=== PATIENT | female | born 1985 | race Two or more races ===

== ENCOUNTER 2021-03-10 16:07 | Emergency (ER) | payer MEDICAID, OTHER ==
[~2021-03-10] VITALS: Ht 165.1 cm; Wt 79.8 kg
[2021-03-10] MEDS ORDERED: ONDANSETRON HCL 4 MG/2 ML VIAL IM ONE (16:45)
[2021-03-10] MEDS ORDERED: HYDROmorphone HCL 2 MG/ML VL IM ONE (16:45)
[2021-03-10 17:58] LABS: Basophils # (auto) 0 10 ^3/uL (0-0.2); Basophils % (auto) 0.3 % (0.0-2.0); Eosinophils # (auto) 0 10 ^3/uL (0-0.8); Eosinophils % (auto) 0.2 % (0.0-7.0); Hemoglobin 14.2 g/dL (12.2-16.2); Lymphocytes # (auto) 3.6 10 ^3/uL (0.4-5.4); Lymphocytes % (auto) 20.2 % (10.0-50.0); Mean Corpuscular Hemoglobin 28.6 pg (28.0-32.0); Mean Corpuscular Volume 86.5 fL (80.0-100.0); Monocytes # (auto) 0.9 10 ^3/uL (0-1.3); Monocytes % (auto) 4.7 % (0.0-12.0); Neutrophils # (auto) 13.5 10 ^3/uL (1.6-8.6); Neutrophils % (auto) 74.6 % (37.0-80.0); Red Blood Cells 4.97 10^6/uL (4.0-5.20); Red Cell Distribution Width 14.6 % (11.8-14.3); White Blood Cell 18.1 10^3/uL (4.4-10.8)
[2021-03-10 18:14] LABS: Albumin 2.9 g/dL (3.4-5.0); Calcium 9.4 mg/dL (8.5-10.1); Potassium 3.8 mmol/L (3.5-5.1)
[2021-03-10 18:17] LABS: BUN/Creatinine Ratio 34.8
[2021-03-10 18:19] LABS: Bilirubin, Total 0.2 mg/dL (0.2-1.0); Total Protein 6.7 g/dL (6.4-8.2)
[2021-03-11 00:22] VITALS: BP 127/69
== END 2021-03-11 00:24 | disposition home or self-care (01) ==
LOC: ER 16:07
DX: G51.0 Bell's palsy (principal); R51.9 Headache, unspecified
CPT/HCPCS: 36415; 70450; 74176; 80053; 83690; 85025; 96372; 99284; J1170; J2405

== ENCOUNTER 2021-03-25 14:16 | Inpatient (IN) | payer MEDICAID ==
[~2021-03-25] VITALS: Ht 162.6 cm; Wt 84.6 kg
[2021-03-25 18:59] LABS: Basophils # (auto) 0 10 ^3/uL (0-0.2); Basophils % (auto) 0.3 % (0.0-2.0); Eosinophils # (auto) 0.1 10 ^3/uL (0-0.8); Hematocrit 42.2 % (36.0-46.0); Hemoglobin 14.1 g/dL (12.2-16.2); Lymphocytes # (auto) 3.3 10 ^3/uL (0.4-5.4); Lymphocytes % (auto) 35.8 % (10.0-50.0); Mean Corpuscular Hemoglobin 29.3 pg (28.0-32.0); Mean Corpuscular Hgb Conc. 33.5 g/dL (32.0-36.0); Mean Corpuscular Volume 87.4 fL (80.0-100.0); Monocytes # (auto) 0.4 10 ^3/uL (0-1.3); Monocytes % (auto) 4.6 % (0.0-12.0); Neutrophils # (auto) 5.4 10 ^3/uL (1.6-8.6); Neutrophils % (auto) 58.3 % (37.0-80.0); Red Blood Cells 4.82 10^6/uL (4.0-5.20); White Blood Cell 9.2 10^3/uL (4.4-10.8)
[2021-03-25 23:44] LABS: Anion Gap 10 (5-15); Calcium 8.9 mg/dL (8.5-10.1); Carbon Dioxide 19 mmol/L (21-32); Chloride 111 mmol/L (98-107); Glucose 90 mg/dL (74-106); Lipase 63 U/L (73-393); Potassium 4.3 mmol/L (3.5-5.1); Sodium 140 mmol/L (136-145)
[2021-03-25 23:51] LABS: Alanine Aminotransferase 34 U/L (13-56); Alkaline Phosphatase 71 U/L (45-117); Aspartate Aminotransferase 22 U/L (15-37); BUN/Creatinine Ratio 46.3; Bilirubin, Total 0.4 mg/dL (0.2-1.0); Blood Urea Nitrogen 19 mg/dL (7-18); GFR African American 224 mL/min; GFR Non-African American 186 mL/min; Total Protein 6.6 g/dL (6.4-8.2)
[2021-03-26] MEDS ORDERED: ONDANSETRON HCL 4 MG/2 ML VIAL IV PRN ×3 (03:45→13:30)
[2021-03-26] MEDS ORDERED: SODIUM CHLORIDE 0.9% 1,000 ML IV ONE (04:00)
[2021-03-26] MEDS ORDERED: HYDROmorphone HCL 2 MG/ML VL IV SCH (04:00)
[2021-03-26] MEDS ORDERED: METOCLOPRAMIDE HCL 5MG/ml INJ 2ml VIAL IV ONE (04:00)
[2021-03-26 08:32] LABS: INR 0.99 (0.9-1.15)
[2021-03-26] MEDS ORDERED: HYDROmorphone HCL 2 MG/ML VL IV ONE ×2 (09:00→13:15)
[2021-03-26] MEDS ORDERED: ONDANSETRON HCL 4 MG/2 ML VIAL IV ONE (09:00)
[2021-03-26] MEDS ORDERED: SUCCINYLCHOLINE CHLORIDE 20 MG/ML 10ML VIAL IV ONE (10:29)
[2021-03-26] MEDS ORDERED: MIDAZOLAM HCL 2MG/2ML 2ml VIAL (1mg/ml) ONE (10:29)
[2021-03-26] MEDS ORDERED: HYDROmorphone HCL 2 MG/ML VL ONE ×2 (10:29→11:35)
[2021-03-26] MEDS ORDERED: NITROGLYCERIN 0.4 MG SL TAB SL PRN (10:45)
[2021-03-26] MEDS ORDERED: MORPHINE SULFATE INJECTION 2 MG/ML SYRG IV PRN (10:45)
[2021-03-26] MEDS ORDERED: levoFLOXacin 500MG 100 ML IV ONE (10:50)
[2021-03-26] MEDS ORDERED: DexAMETHasone SOD PHOS 10MG/1ML VIAL INJ ONE (11:11)
[2021-03-26] MEDS ORDERED: diphenhdrAMINE HCL 50 MG/1 ML VL ONE (11:11)
[2021-03-26] MEDS ORDERED: ROCURONIUM 10MG/ML 10ML VIAL IV ONE (11:36)
[2021-03-26] MEDS ORDERED: GLYCOPYRROLATE 0.2 MG/ML 1ML VIAL ONE (12:16)
[2021-03-26] MEDS ORDERED: NEOSTIGMINE 1 MG/ML INJ (10mg/10ML VIAL) ONE (12:16)
[2021-03-26 12:29] LABS: Basophils # (auto) 0.1 10 ^3/uL (0-0.2); Basophils % (auto) 0.6 % (0.0-2.0); Eosinophils # (auto) 0.1 10 ^3/uL (0-0.8); Eosinophils % (auto) 0.9 % (0.0-7.0); Hematocrit 40.7 % (36.0-46.0); Hemoglobin 13.2 g/dL (12.2-16.2); Lymphocytes # (auto) 2.6 10 ^3/uL (0.4-5.4); Lymphocytes % (auto) 26.2 % (10.0-50.0); Mean Corpuscular Hemoglobin 28.8 pg (28.0-32.0); Mean Corpuscular Hgb Conc. 32.4 g/dL (32.0-36.0); Mean Corpuscular Volume 88.8 fL (80.0-100.0); Monocytes # (auto) 0.5 10 ^3/uL (0-1.3); Monocytes % (auto) 5.1 % (0.0-12.0); Neutrophils # (auto) 6.7 10 ^3/uL (1.6-8.6); Neutrophils % (auto) 67.2 % (37.0-80.0); Red Blood Cells 4.58 10^6/uL (4.0-5.20); Red Cell Distribution Width 15.2 % (11.8-14.3)
[2021-03-26 12:36] LABS: Albumin 2.9 g/dL (3.4-5.0); Calcium 8.6 mg/dL (8.5-10.1); Potassium 3.9 mmol/L (3.5-5.1)
[2021-03-26 12:39] LABS: BUN/Creatinine Ratio 41.5; Bilirubin, Total 0.4 mg/dL (0.2-1.0); Total Protein 6.1 g/dL (6.4-8.2)
[2021-03-26] MEDS ORDERED: ONDANSETRON HCL 4 MG/2 ML VIAL ONE (12:48)
[2021-03-26] MEDS ORDERED: HYDROmorphone HCL 2 MG/ML VL IV PRN (13:30)
[2021-03-26] MEDS ORDERED: MORPHINE SULFATE 4 MG/ML SYR/VIAL IV PRN (13:30)
[2021-03-26] MEDS ORDERED: hydrALAZINE HCL 20 MG/ML VL IV PRN (13:30)
[2021-03-26] MEDS ORDERED: MIDAZOLAM HCL 2MG/2ML 2ml VIAL (1mg/ml) IV PRN (13:30)
[2021-03-26] MEDS ORDERED: ePHEDrine SULFATE 50 MG/ML AMP IV PRN (13:30)
[2021-03-26] MEDS ORDERED: LABETALOL HCL 5 MG/ML 4ML SYRINGE IV PRN (13:30)
[2021-03-26] MEDS: metroNIDAZOLE 500MG/100ML 100 ML IV SCH ×2 (14:00→22:00)
[2021-03-26] MEDS: ONDANSETRON HCL 4 MG/2 ML VIAL IV PRN ×2 (17:21→23:54)
[2021-03-26] MEDS: D5W/SOD CHL 0.45%/KCL 20MEQ 1,000 ML IV SCH ×2 (17:38→21:59)
[2021-03-26] MEDS: MORPHINE SULFATE INJECTION 2 MG/ML SYRG IV PRN ×2 (17:44→23:53)
[2021-03-26 19:23] LABS: Urine Bacteria NONE SEEN /hpf (None Seen); Urine Blood Negative /uL (Negative); Urine Specific Gravity 1.012 (1.001-1.035); Urine WBC 1 /hpf (0 - 5)
[2021-03-26 22:00] VITALS: BP 120/75
[2021-03-27] MEDS: ONDANSETRON HCL 4 MG/2 ML VIAL IV PRN ×6 (03:47→20:48)
[2021-03-27] MEDS ORDERED: PROMETHAZINE HCL 25 MG/ML 1ML IV ONE (04:15)
[2021-03-27] MEDS ORDERED: KETOROLAC TROMETH 30 MG/ML 1ML VIAL IV ONE (04:15)
[2021-03-27 05:27] VITALS: BP 128/81
[2021-03-27] MEDS: metroNIDAZOLE 500MG/100ML 100 ML IV SCH ×3 (05:38→20:48)
[2021-03-27] MEDS: D5W/SOD CHL 0.45%/KCL 20MEQ 1,000 ML IV SCH ×2 (05:59→11:05)
[2021-03-27] MEDS: MORPHINE SULFATE INJECTION 2 MG/ML SYRG IV PRN ×5 (06:00→20:47)
[2021-03-27 07:25] LABS: Basophils # (auto) 0 10 ^3/uL (0-0.2); Basophils % (auto) 0.3 % (0.0-2.0); Eosinophils # (auto) 0.1 10 ^3/uL (0-0.8); Eosinophils % (auto) 0.5 % (0.0-7.0); Hematocrit 37.2 % (36.0-46.0); Hemoglobin 12.2 g/dL (12.2-16.2); Lymphocytes # (auto) 1.8 10 ^3/uL (0.4-5.4); Lymphocytes % (auto) 15.9 % (10.0-50.0); Mean Corpuscular Hgb Conc. 32.9 g/dL (32.0-36.0); Mean Corpuscular Volume 88.2 fL (80.0-100.0); Monocytes # (auto) 0.5 10 ^3/uL (0-1.3); Monocytes % (auto) 4.6 % (0.0-12.0); Neutrophils # (auto) 8.8 10 ^3/uL (1.6-8.6); Neutrophils % (auto) 78.7 % (37.0-80.0); Nucleated Red Blood Cells % 0.1 %; Red Blood Cells 4.21 10^6/uL (4.0-5.20); Red Cell Distribution Width 14.9 % (11.8-14.3); White Blood Cell 11.2 10^3/uL (4.4-10.8)
[2021-03-27 07:45] LABS: Potassium 4.2 mmol/L (3.5-5.1)
[2021-03-27 07:56] LABS: Albumin 2.4 g/dL (3.4-5.0); BUN/Creatinine Ratio 16.3; Bilirubin, Total 0.4 mg/dL (0.2-1.0); Calcium 8.9 mg/dL (8.5-10.1); Total Protein 5.4 g/dL (6.4-8.2)
[2021-03-27 09:00] VITALS: BP 114/72
[2021-03-27] MEDS: PANTOPRAZOLE 40 MG/10 ML VIAL INJ IV SCH (10:00)
[2021-03-27] MEDS: levoFLOXacin 500MG 100 ML IV SCH (10:00)
[2021-03-27 13:00] VITALS: BP 123/75
[2021-03-27 16:17] VITALS: BP 116/61
[2021-03-28] MEDS: ONDANSETRON HCL 4 MG/2 ML VIAL IV PRN ×6 (01:11→22:22)
[2021-03-28] MEDS: MORPHINE SULFATE INJECTION 2 MG/ML SYRG IV PRN ×8 (03:24→21:35)
[2021-03-28] MEDS: D5W/SOD CHL 0.45%/KCL 20MEQ 1,000 ML IV SCH ×3 (03:25→15:20)
[2021-03-28 05:00] VITALS: BP 134/78
[2021-03-28] MEDS: metroNIDAZOLE 500MG/100ML 100 ML IV SCH ×3 (05:54→21:40)
[2021-03-28 09:00] VITALS: BP 129/80
[2021-03-28] MEDS: PANTOPRAZOLE 40 MG/10 ML VIAL INJ IV SCH (09:19)
[2021-03-28] MEDS: levoFLOXacin 500MG 100 ML IV SCH (09:20)
[2021-03-28 13:00] VITALS: BP 117/76
[2021-03-28 17:00] VITALS: BP 118/70
[2021-03-28 22:00] VITALS: BP 103/60
[2021-03-29] MEDS: MORPHINE SULFATE INJECTION 2 MG/ML SYRG IV PRN ×8 (00:26→23:14)
[2021-03-29] MEDS: D5W/SOD CHL 0.45%/KCL 20MEQ 1,000 ML IV SCH ×3 (00:34→16:09)
[2021-03-29] MEDS: ONDANSETRON HCL 4 MG/2 ML VIAL IV PRN ×6 (02:30→23:15)
[2021-03-29 05:00] VITALS: BP 126/78
[2021-03-29] MEDS: metroNIDAZOLE 500MG/100ML 100 ML IV SCH ×3 (06:00→21:38)
[2021-03-29 09:00] VITALS: BP 105/71
[2021-03-29] MEDS: levoFLOXacin 500MG 100 ML IV SCH (10:21)
[2021-03-29] MEDS: PANTOPRAZOLE 40 MG/10 ML VIAL INJ IV SCH (10:21)
[2021-03-29 13:00] VITALS: BP 102/67
[2021-03-29 17:00] VITALS: BP 110/72
[2021-03-29 22:00] VITALS: BP 109/57
[2021-03-30] MEDS: MORPHINE SULFATE INJECTION 2 MG/ML SYRG IV PRN ×7 (02:40→23:10)
[2021-03-30] MEDS: ONDANSETRON HCL 4 MG/2 ML VIAL IV PRN ×5 (03:37→19:39)
[2021-03-30 05:00] VITALS: BP 107/64
[2021-03-30] MEDS: metroNIDAZOLE 500MG/100ML 100 ML IV SCH ×2 (05:52→13:51)
[2021-03-30 09:00] VITALS: BP 105/54
[2021-03-30] MEDS: levoFLOXacin 500MG 100 ML IV SCH (09:34)
[2021-03-30] MEDS: PANTOPRAZOLE 40 MG/10 ML VIAL INJ IV SCH (09:34)
[2021-03-30 13:00] VITALS: BP 112/69
[2021-03-30] MEDS ORDERED: HYDROcodone-ACET 5/325MG TAB PO PRN (14:45)
[2021-03-30 16:56] VITALS: BP 106/65
[2021-03-30 23:04] VITALS: BP 111/64
[2021-03-31] MEDS: MORPHINE SULFATE INJECTION 2 MG/ML SYRG IV PRN ×4 (02:26→12:56)
[2021-03-31] MEDS: ONDANSETRON HCL 4 MG/2 ML VIAL IV PRN ×3 (02:26→10:48)
[2021-03-31 05:26] VITALS: BP 106/62
[2021-03-31 08:00] VITALS: BP 111/68
[2021-03-31] MEDS ORDERED: LACTULOSE 20Gm/30ML SOLN PO ONE (09:00)
[2021-03-31 12:00] VITALS: BP 108/60
[2021-03-31] MEDS ORDERED: AMOX500T86 PO (13:05)
[2021-03-31] MEDS ORDERED: ONDA-144 PO (13:05)
[2021-03-31 13:34] VITALS: BP 108/60
== END 2021-03-31 14:00 | disposition home or self-care (01) | DRG 220 ==
LOC: ER 14:16 → TELE 03-26 10:35 → TELE-WESTW 03-26 16:57
PROVIDERS: ADMIT Internal Medicine Nephrology; ATTEND Hospitalist
PROC: 0DB60ZZ Excision of Stomach, Open Approach (ICD-10-PCS; principal; 2021-03-27)
PROC: 0WQF0ZZ Repair Abdominal Wall, Open Approach (ICD-10-PCS; 2021-03-27)
DX: K31.6 Fistula of stomach and duodenum (principal); T18.2XXA Foreign body in stomach, initial encounter; K94.23 Gastrostomy malfunction; G51.0 Bell's palsy; G35 Multiple sclerosis; F17.210 Nicotine dependence, cigarettes, uncomplicated; F32.A Depression, unspecified; M79.5 Residual foreign body in soft tissue; K43.9 Ventral hernia without obstruction or gangrene; Z20.822 Contact with and (suspected) exposure to COVID-19; J45.909 Unspecified asthma, uncomplicated; Z81.8 Family history of other mental and behavioral disorders; Z82.49 Family history of ischemic heart disease and other diseases of the circulatory system; Z83.3 Family history of diabetes mellitus; Z90.710 Acquired absence of both cervix and uterus; Z88.0 Allergy status to penicillin; Z88.2 Allergy status to sulfonamides; Z88.8 Allergy status to other drugs, medicaments and biological substances; Y83.3 Surgical operation with formation of external stoma as the cause of abnormal reaction of the patient, or of later complication, without mention of misadventure at the time of the procedure; X58.XXXA Exposure to other specified factors, initial encounter; Y93.9 Activity, unspecified; Y92.89 Other specified places as the place of occurrence of the external cause; Y99.8 Other external cause status
CPT/HCPCS: 36415; 74176; 80053; 81001; 83605; 83690; 85025; 85610; 86850; 86900; 86901; 87040; 87426; 96361; 96374; 96375; 97116; 97163; 97530; C9113; G0378; J0330; J1100; J1885; J1956; J2250; J2405; J3490